=== PATIENT | male | born 1940 | race Caucasian/White ===

== ENCOUNTER 2016-10-15 18:48 | Inpatient (IN) | payer OTHER ==
[~2016-10-15] VITALS: Ht 188 cm; Wt 125.6 kg
[2016-10-15 18:48] VITALS: BP_SYST 226
[~2016-10-15 18:48] MED LIST: GLIP5TAB13 PO; HYDR4TAB26 PO; LISI-600 PO; LORA-259 PO; METO-442 PO; TEMA15CA51 PO; TIZA4TAB11 PO; TRAM50TA2 PO; VENL37.578 PO
--- NOTE | 2016-10-15 19:00 | NUR ---
Placed in room 1 . Placed on cardiac/vascular sonographer, blood pressure machine and pulse oximeter. To gown for exam. Side rails up. Report assumed care.
--- NOTE | 2016-10-15 19:02 | NUR ---
ER at bedside examining patient.
--- NOTE | 2016-10-15 19:10 | NUR ---
Patient arrived to ED a/o x 4 with c/o of substerbal chest pain radiating to the left side x 2 days. Patient reports he feel as if he was lying on one side for too long. Patient has history of high blood pressure. Patient was seen by PCP and was referred to ED due to abnormally high BP. Patient presents to ED with BP of 226/108. Patient reports new onset of N/V. Patient presents with diaphoresis. Complains of SOB but reports it hasnt worsened from baseline. Patient also reports 10/10 lower backpain. Will continue to monitor.
[2016-10-15] MEDS ORDERED: NITROGLYCERIN 0.4 MG TAB.SUBL SL ONE ×2 (19:13→19:15)
[2016-10-15] MEDS ORDERED: ASPIRIN 325 MG TABLET PO ONE (19:15)
[2016-10-15] MEDS ORDERED: NITROGLYCERIN 250 ML IV ONE (19:15)
[2016-10-15] MEDS ORDERED: MORPHINE 4 MG/ML INJ. SYRINGE IVP ONE (19:30)
[2016-10-15 19:42] LABS: BASOPHILS % (AUTO) 0.6 % (0.0-2.0); EOSINOPHILS # (AUTO) 0.3 K/uL (0.0-0.4); EOSINOPHILS % (AUTO) 5.9 % (0.0-4.0); HEMATOCRIT 48.9 % (36-54); LYMPHOCYTES # (AUTO) 1.5 K/uL (1.0-5.5); LYMPHOCYTES % (AUTO) 26.1 % (20.5-51.5); MEAN CORPUSCULAR HEMOGLOBIN 29 pg (27-31); MEAN CORPUSCULAR HGB CONC 33 % (32-36); MEAN CORPUSCULAR VOLUME 89 fL (79.0-98.0); MONOCYTES # (AUTO) 0.7 K/uL (0.0-1.0); MONOCYTES % (AUTO) 11.8 % (1.7-9.3); NEUTROPHILS # (AUTO) 3.2 K/uL (1.8-7.7); NEUTROPHILS % (AUTO) 55.6 % (40.0-70.0); PLATELET COUNT (AUTO) 154 K/uL (130-430); RED BLOOD CELL COUNT(AUTO) 5.51 MIL/uL (4.2-6.2); WHITE BLOOD COUNT (AUTO) 5.7 K/uL (4.8-10.8)
--- NOTE | 2016-10-15 19:45 | NUR ---
ED MD Corley at bedside examining patient.
--- NOTE | 2016-10-15 19:50 | NUR ---
20 gauge angiocath placed to the right forearm. Use of asceptic technique. Opsite placed over site. Blood return noted. Blood for lab drawn from site. Flushed with 10 cc of normal saline. No evidence of infiltration noted. Patient tolerated well.
[2016-10-15 19:52] LABS: ANION GAP 4 (5-15); CALCIUM 8.4 mg/dL (8.4-11.0); CHLORIDE 107 mmol/L (98-107); CREATININE 1.14 mg/dL (0.55-1.30); GLUCOSE 140 mg/dL (70-99); POTASSIUM 4.3 mmol/L (3.5-5.1); SODIUM SERUM 142 mmol/L (136-145); UREA NITROGEN, BLOOD 25 mg/dL (8-21)
--- NOTE | 2016-10-15 19:55 | NUR ---
Patient transported off unit via gurney by radiology staff.
[2016-10-15 19:57] LABS: ALANINE AMINOTRANSFERASE 30 U/L (12-78); ALBUMIN 3.4 g/dL (3.4-4.8); ASPARTATE AMINOTRANSFERASE 24 U/L (10-37); CREATINE KINASE, TOTAL 46 U/L (39-308); TOTAL BILIRUBIN 0.7 mg/dL (0.0-1.0); TOTAL PROTEIN, SERUM 7.5 g/dL (6.4-8.3)
--- NOTE | 2016-10-15 20:00 | NUR ---
Patient reports pain 6/10 15 minutes after administration of 4mg morphine. No adverse reactions noted. Will continue to monitor.
--- NOTE | 2016-10-15 20:05 | NUR ---
Patient returned to unit from CT via gurney by radiology staff.
--- NOTE | 2016-10-15 20:25 | NUR ---
ED MD Corley at bedside reassessing patient.
[2016-10-15] MEDS ORDERED: LISI40TA4 PO (20:42)
[2016-10-15] MEDS ORDERED: ONDA4TAB5 PO (20:42)
[2016-10-15] MEDS ORDERED: ESZO3TAB39 PO (20:43)
[2016-10-15] MEDS ORDERED: VENL75CA PO (20:44)
[2016-10-15] MEDS ORDERED: HYDR-1189 PO (20:45)
--- NOTE | 2016-10-15 20:51 | NUR ---
Medication reconciliation completed with information provided by patient. Any prior medication reconciliation on file was reviewed and corrected.
--- NOTE | 2016-10-15 21:00 | NUR ---
Patient will be admitted to care of Dr. Alicia. Admitted to Intensive Care unit. Will go to bed 1. Belongings list completed. Summary report printed. Report will be given at bedside. Transfer to ICU via ACLS protocol. Licensed nurse present. IV present no signs or symptoms of infiltration.
[2016-10-15] MEDS ORDERED: NACL 0.9% 1,000 ML IV SCH (21:10)
[2016-10-15] MEDS ORDERED: ACETAMINOPHEN 325 MG TABLET PO PRN (21:15)
[2016-10-15 21:24] VITALS: BP_SYST 195
[2016-10-15] MEDS ORDERED: POTASSIUM CHLORIDE 20 MEQ TAB.PRT.SR PO PRN (21:30)
[2016-10-15] MEDS ORDERED: IPRATROPIUM/ALBUTEROL SULFATE 3 ML AMPUL.NEB INH PRN (21:30)
[2016-10-15] MEDS ORDERED: MAGNESIUM SULFATE 50 ML IV PRN (21:30)
[2016-10-15 21:31] LABS: INR 1.1 (0.80-1.20); PROTHROMBIN TIME 11.7 SECS (9.5-12.5)
[2016-10-15] MEDS ORDERED: INSULIN REGULAR, HUMAN 100 UNITS/ML, 10 ML VIAL (novoLIN R) SUBCUT PRN (21:45)
--- NOTE | 2016-10-15 21:57 | NUR ---
CONSULT FOR KAYLAN CALLED @0871. SPOKE TO BEENA CONSULT FOR SUKHI CALLED @2017. SPOKE TO MAHESH
[2016-10-15 22:00] VITALS: BP_SYST 170; BP_SYST 187
--- NOTE | 2016-10-15 22:00 | NUR ---
PM SHIFT ASSESSMENT Received patient from ER via gurney. Patient admitted with diagnosis of hypertension and chest pain. Patient is awake, alert, oriented X4. Pt on room air, SP02 above 94%, RR even and unlabored. SR noted on monitor. IV to right AC, IVF infusing, no s/s of infiltration. Urinal at bedside for voiding. Skin intact. Patient oriented to hospital room, call light, toileting, pain management and safety-teach back done. Personal belongings checked and Belongings List documented. Call light within reach.
--- NOTE | 2016-10-15 22:00 | NUR ---
Note bladimir in ED - 10/16/16 at 0406 by [email or web address] Patient reports pain 6/10 15 minutes after administration of 4mg morphine. No adverse reactions noted. Will continue to monitor.
[2016-10-15 22:06] LABS: FREE T4 (FREE THYROXINE) 0.5 ng/dL (0.6-1.6); THYROID STIMULATING HORMONE 4.23 uIu/mL (0.34-4.82)
--- NOTE | 2016-10-15 22:25 | NUR ---
Anatoly garrison in ED - 10/16/16 at 0347 by [email or web address] KEVIN Corley at bedside reassessing patient.
[2016-10-15 23:00] VITALS: BP_SYST 154
[2016-10-16] VITALS (23 sets, daily range): BP systolic 123–203
[2016-10-16] MEDS: METOPROLOL TARTRATE 50 MG TABLET PO SCH ×3 (00:07→21:10)
[2016-10-16] MEDS: MORPHINE 2 MG/ML INJ. SYRINGE IVP PRN ×3 (00:08→09:59)
[2016-10-16] MEDS: LORazepam 2 MG/ML VIAL IVP PRN ×3 (00:10→21:34)
--- NOTE | 2016-10-16 00:50 | NUR ---
Dr. Alicia at bedside evaluating patient.
[2016-10-16] MEDS: ZOLPIDEM TARTRATE 5 MG TABLET PO PRN (01:12)
[2016-10-16 03:38] LABS: BASOPHILS # (AUTO) 0.1 K/uL (0.0-0.2); BASOPHILS % (AUTO) 0.9 % (0.0-2.0); EOSINOPHILS # (AUTO) 0.3 K/uL (0.0-0.4); EOSINOPHILS % (AUTO) 3.5 % (0.0-4.0); HEMATOCRIT 41.5 % (36-54); LYMPHOCYTES # (AUTO) 1.1 K/uL (1.0-5.5); LYMPHOCYTES % (AUTO) 14.7 % (20.5-51.5); MEAN CORPUSCULAR HEMOGLOBIN 30 pg (27-31); MEAN CORPUSCULAR HGB CONC 34 % (32-36); MEAN CORPUSCULAR VOLUME 89 fL (79.0-98.0); MONOCYTES # (AUTO) 0.7 K/uL (0.0-1.0); MONOCYTES % (AUTO) 9.5 % (1.7-9.3); NEUTROPHILS # (AUTO) 5.4 K/uL (1.8-7.7); NEUTROPHILS % (AUTO) 71.4 % (40.0-70.0); PLATELET COUNT (AUTO) 138 K/uL (130-430); RED BLOOD CELL COUNT(AUTO) 4.66 MIL/uL (4.2-6.2); RED CELL DISTRIBUTION WIDTH 14.7 % (9.0-15.0); WHITE BLOOD COUNT (AUTO) 7.6 K/uL (4.8-10.8)
[2016-10-16 03:55] LABS: ANION GAP 6 (5-15); CALCIUM 7.8 mg/dL (8.4-11.0); CHLORIDE 107 mmol/L (98-107); CREATININE 1.03 mg/dL (0.55-1.30); GLUCOSE 142 mg/dL (70-99); PHOSPHORUS 3.5 mg/dL (2.7-4.5); SODIUM SERUM 141 mmol/L (136-145)
--- NOTE | 2016-10-16 04:05 | NUR ---
CHG bath done. Pt tolerated care well. Will continue to monitor.
[2016-10-16 04:10] LABS: UREA NITROGEN, BLOOD 26 mg/dL (8-21)
[2016-10-16 04:12] LABS: BILIRUBIN,URINE NEGATIVE (NEGATIVE); CLARITY/URINE CLEAR (CLEAR); COLOR,URINE YELLOW (YELLOW); GLUCOSE,URINE NEGATIVE (NEGATIVE); KETONES,URINE NEGATIVE (NEGATIVE); LEUKOCYTE ESTERASE ,URINE NEGATIVE (NEGATIVE); NITRITE, URINE NEGATIVE (NEGATIVE); PROTEIN URINE NEGATIVE (NEGATIVE); UROBILINOGEN,URINE 0.2 (0.2-1.0)
[2016-10-16] MEDS: ONDANSETRON HCL 4 MG/2 ML VIAL IVP PRN ×2 (04:17→09:59)
[2016-10-16 04:27] LABS: BLOOD, URINE TRACE (NEGATIVE)
[2016-10-16 04:29] LABS: CHOLESTEROL 182 mg/dL (<200); HDL CHOLESTEROL 41 mg/dL (>45); LDL CHOLESTEROL 122 mg/dL (<100); TRIGLYCERIDES 112 mg/dL (30-150)
[2016-10-16 04:30] LABS: BACTERIA,URINE FEW /HPF (None Seen)
[2016-10-16 04:31] LABS: MUCUS,URINE None Seen /LPF (None Seen)
[2016-10-16 04:42] LABS: BARBITURATE, URINE NEGATIVE (NEG <=200); BENZODIAZEPINE, URINE POSITIVE (NEG <=150); CANNABINOID, URINE POSITIVE (NEG <=50); COCAINE, URINE NEGATIVE (NEG <=150); METHAMPHETAMINES SCREEN,URINE NEGATIVE (NEG <=500); OPIATE, URINE POSITIVE (NEG <=100); PHENCYCLIDINE SCREEN,URINE NEGATIVE (NEG <=25); UR TRICYCLIC ANTIDEPRESSANTS NEGATIVE (NEG <=300); URINE AMPHETAMINE NEGATIVE (NEG <=500); URINE METHADONE NEGATIVE (NEG <=200); URINE OXYCODONE SCREEN NEGATIVE (NEG <=100); URINE PROPOXYPHENE SCREEN NEGATIVE (NEG <=300)
--- NOTE | 2016-10-16 07:15 | NUR ---
Pt care endorsed to CORAZON Rodriguez at bedside using nursing SBAR.
--- NOTE | 2016-10-16 07:16 | NUR ---
AM Assessment Received Pt awake, alert, orientated x4. Pt breathing even and unlabored. Pt c/o headache / of an aching pain. Informed Pt pain medication is not due. Encouraged Pt to deep breath and decrease room light for comfort measures. Lung sounds auscultated, lung sounds clear throughout all lobes, Abd auscultated, bowel sounds noted throughout all quadrant. Abd soft and distended. Telemonitor noted SR with PVC. Pt currently on a nitroglycerin drip at 50mcg/min. HR 65, B/P 169/72, R 18, O2 @95% room air. IV access noted right AC 20G, patent with blood return. No s/s of inflammation or infiltration noted. Fall precaution in placed for safety measures. Assessment done, plan of care discussed with pt and Pt's , call light within easy reach, bed at lowest position, will continue to monitor.
--- NOTE | 2016-10-16 07:45 | NUR ---
BM Pt awake. Pt breathing even and unlabored. Pt c/o headache 10/10 of an aching pain. Informed Pt pain mediation is not due yet. Encouraged Pt to deep breath and provided ice pack for comfort measures. Nitroglycerin drip currently infusing at 50mcg/min, B/P 169/72, HR 65 SR with PVC, R 18, O2 96% room air. Pt requesting to use the toilet to make a BM. Pt refusing to use the bedpan. Informed Pt that Pt is at a high risk for falls because Pt is on a nitroglycerin drip and Pt should remain in bedrest to decrease the workload of the heart. Pt made aware of risk and benefits. Pt became verbally aggressive, tone of voice increased. Pt refuse to follow the plan of care. Bedside commode provided. Pt became SOB while ambulating to the bedside commode. Pt refuse O2 via NC. Pt had a large soft formed BM. Jyoti care provided. Informed Pt to push the call light if Pt needs assistance with anything. Pt verbalized understanding. Call light within easy reach, bed at lowest position, will continue to monitor.
[2016-10-16] MEDS: DOCUSATE SODIUM 100 MG CAPSULE PO SCH ×2 (09:00→21:10)
[2016-10-16] MEDS ORDERED: METOPROLOL TARTRATE 50 MG TABLET PO SCH (09:00)
[2016-10-16] MEDS: HEPARIN SODIUM,PORCINE 5000 UNITS/ML VIAL SUBCUT SCH ×2 (09:00→21:47)
[2016-10-16] MEDS: ASPIRIN 81 MG TAB.CHEW PO SCH (09:51)
[2016-10-16] MEDS: LISINOPRIL 20 MG TABLET PO SCH (09:53)
[2016-10-16] MEDS: Effexor 37.5 MG TAB PO SCH ×2 (09:55→21:10)
--- NOTE | 2016-10-16 10:00 | NUR ---
MD rounds Pt awake. Pt breathing even and unlabored. Pt c/o headache 01/03, pain medication administered as ordered. Nitroglycerin drip currently infusing at 50mcg/min. B/P 173/81, HR,72 20 O2 95% room air. Dr. Alicia at the bedside discussing plan of care. Informed Pt to push the call light if Pt needs assistance with anything. Pt verbalized understanding. Call light within easy reach, bed at lowest position, will continue to monitor.
[2016-10-16] MEDS ORDERED: amLODIPine BESYLATE 10 MG TABLET PO ONE (10:30)
[2016-10-16] MEDS ORDERED: FUROSEMIDE 40 MG/4 ML VIAL IVP ONE (11:00)
--- NOTE | 2016-10-16 11:15 | NUR ---
MD rounds Pt awake. Pt breathing even and unlabored. Pt c/o headache 01/03, pain medication was administered and ineffective. Decreased light and provided ice pack for comfort measures. Nitroglycerin drip currently infusing at 50mcg/min. B/P 174/97, HR 71, R 20 O2 97% @ 2L O2 via NC. Dr. Canchola at the bedside discussing plan of care. Informed Pt to push the call light if Pt needs assistance with anything. Pt verbalized understanding. Call light within easy reach, bed at lowest position, will continue to monitor.
[2016-10-16] MEDS: KETOROLAC TROMETHAMINE 30 MG VIAL IM PRN ×3 (11:31→18:40)
[2016-10-16] MEDS: IPRATROPIUM/ALBUTEROL SULFATE 3 ML AMPUL.NEB INH SCH ×2 (13:34→20:03)
--- NOTE | 2016-10-16 13:48 | NUR ---
PATIENT RESTING: Patient resting quietly. Chest rise and fall noted. No acute distress noted. Vital signs within normal range. Call light within easy reach, bed at lowest position, will continue to monitor.
--- NOTE | 2016-10-16 16:35 | NUR ---
Pt. awake. Pt. breathing even and unlabored. Pt. noted talking on the cellphone. Pt. denies pain, SOB or discomfort. chief cardiopulmonary technologist at the bedside performing cardiac echo. Informed Pt. to push the call light if pt. needs assistance, pt. verbalized understanding. Call light within easy reach. Bed at lowest position. Will continue to monitor.
--- NOTE | 2016-10-16 19:15 | NUR ---
ENDORSEMENT Received report from outgoing CORAZON Rodriguez.
--- NOTE | 2016-10-16 21:00 | NUR ---
NEW IV SITE NEW IV inserted at Left hand 22g. D/C old IV sites due clogged/not flushing.
[2016-10-16] MEDS: SIMVASTATIN 40 MG TABLET PO SCH (21:11)
--- NOTE | 2016-10-16 21:30 | NUR ---
Patient verbalized being anxious and would like something to make him sleep. Offered PRN ambien but patient refused due ineffective. PRN Ativan given as per order.
[2016-10-17] VITALS (10 sets, daily range): BP systolic 136–179
[2016-10-17] MEDS: MORPHINE 2 MG/ML INJ. SYRINGE IVP PRN ×6 (00:45→21:26)
--- NOTE | 2016-10-17 00:51 | NUR ---
PAIN Patient complaining of back and leg pain. Patient also verbalized that he still cannot sleep. PRN Morphine and PRN Ambien given as ordered
[2016-10-17] MEDS: IPRATROPIUM/ALBUTEROL SULFATE 3 ML AMPUL.NEB INH SCH ×4 (01:00→20:13)
--- NOTE | 2016-10-17 02:30 | NUR ---
Patient lying in bed with eyes closed. Rise and fall of chest noted. No sign of distress noted. Call light within reach. Bed in lowest position. Will continue to monitor patient.
[2016-10-17] MEDS: LORazepam 2 MG/ML VIAL IVP PRN (03:57)
[2016-10-17 07:07] LABS: BASOPHILS % (AUTO) 0.4 % (0.0-2.0); EOSINOPHILS # (AUTO) 0.2 K/uL (0.0-0.4); EOSINOPHILS % (AUTO) 2.8 % (0.0-4.0); HEMATOCRIT 44.8 % (36-54); HEMOGLOBIN 14.5 g/dL (14.0-18.0); LYMPHOCYTES # (AUTO) 1.4 K/uL (1.0-5.5); LYMPHOCYTES % (AUTO) 18.2 % (20.5-51.5); MEAN CORPUSCULAR HEMOGLOBIN 29 pg (27-31); MEAN CORPUSCULAR HGB CONC 32 % (32-36); MEAN CORPUSCULAR VOLUME 90 fL (79.0-98.0); MONOCYTES # (AUTO) 0.9 K/uL (0.0-1.0); MONOCYTES % (AUTO) 12.2 % (1.7-9.3); NEUTROPHILS # (AUTO) 5.3 K/uL (1.8-7.7); NEUTROPHILS % (AUTO) 66.4 % (40.0-70.0); PLATELET COUNT (AUTO) 139 K/uL (130-430); RED BLOOD CELL COUNT(AUTO) 4.98 MIL/uL (4.2-6.2); RED CELL DISTRIBUTION WIDTH 14.6 % (9.0-15.0); WHITE BLOOD COUNT (AUTO) 7.8 K/uL (4.8-10.8)
[2016-10-17 07:25] LABS: ANION GAP 5 (5-15); CALCIUM 8.4 mg/dL (8.4-11.0); CHLORIDE 105 mmol/L (98-107); CREATININE 1.07 mg/dL (0.55-1.30); GLUCOSE 114 mg/dL (70-99); PHOSPHORUS 3.1 mg/dL (2.7-4.5); POTASSIUM 3.7 mmol/L (3.5-5.1); SODIUM SERUM 141 mmol/L (136-145); UREA NITROGEN, BLOOD 20 mg/dL (8-21)
[2016-10-17] MEDS: amLODIPine BESYLATE 10 MG TABLET PO SCH (07:31)
--- NOTE | 2016-10-17 08:00 | NUR ---
ASSUMPTION OF CARE: RECEIVED PT A/A/OX4, DX:INADEQUATE PERFUSION, R/T HTN/CHRONIC PAIN, BP =194/89, PAIN LEVEL=7/10 VIA NUMERIC SCALE, BREATH SOUNDS ARE CLEAR, BREATHING UNLABORED, REFUSING O2 VIA NC, SATURATING 94 % ORA, IV SITE INTACT, PATENT, NO REDNESS OR SWELLING, ORIENTED TO UNIT, CALL LIGHT WITHIN REACH, INSTRUCTED TO UTILIZE BEFORE GETTING OOB, VERBALIZES UNDERSTANDING, WILL CONT' TO MONITOR AND ASSESS.
[2016-10-17] MEDS: DOCUSATE SODIUM 100 MG CAPSULE PO SCH ×2 (08:29→20:49)
[2016-10-17] MEDS: LISINOPRIL 20 MG TABLET PO SCH (08:30)
[2016-10-17] MEDS: METOPROLOL TARTRATE 50 MG TABLET PO SCH ×2 (08:31→20:48)
[2016-10-17] MEDS: ASPIRIN 81 MG TAB.CHEW PO SCH (08:31)
[2016-10-17] MEDS: HEPARIN SODIUM,PORCINE 5000 UNITS/ML VIAL SUBCUT SCH ×2 (08:36→20:55)
[2016-10-17] MEDS: Effexor 37.5 MG TAB PO SCH ×2 (08:37→20:47)
--- NOTE | 2016-10-17 09:00 | NUR ---
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
--- NOTE | 2016-10-17 09:50 | NUR ---
VISIT: AT BEDSIDE FOR ASSESSMENT OF PT, DISCUSSED PLAN OF CARE, NEW ORDERS GIVEN, WILL CONT' WITH PLAN OF CARE.
[2016-10-17] MEDS ORDERED: oxyCODONE HCL 10 MG TAB.ER.12H PO SCH (10:00)
--- NOTE | 2016-10-17 10:00 | NUR ---
P.T. NOTES PATIENT'S CHART REVIEWED, GOT CLEARANCE FROM NURSE FOR P.T. AND PATIENT WAS SEEN IN BED WITH A FAMILY MEMBER AT HIS SIDE VISITING. BOTH REFUSED TO PARTICIPATE WITH THE P.T. EVAL IN SPITE OF SEVERAL ENCOURAGEMENTS GIVEN AND THE BENEFIT OF MOBILITY ACTIVITIES BUT BOTH KEEP REFUSING "UNTIL THEY FIGURE OUT MY PAIN MEDICATION FIRST!" PER PATIENT TO TRY AGAIN TOMORROW BUT NOT TODAY. HIS NURSE WAS MADE AWARE OF HIS REFUSAL. PLAN: WE'LL ATTEMPT THE EVAL AGAIN TOMORROW. (PVEX2)
--- NOTE | 2016-10-17 10:40 | NUR ---
transfer rec patient transfer from icu, awake alert oriented with ivl intact. no infiltration oted. oriented with pt's surrounding. provided with urianl with a martin. bed in low position and side rails up and locked. bed alrm was activated at bedside.call light within reached and knows when to call for help.
[2016-10-17] MEDS ORDERED: ISOSORBIDE DINITRATE 20 MG TABLET (ISORDIL) PO ONE (11:15)
--- NOTE | 2016-10-17 12:00 | NUR ---
rounds no hypo /hyperglycemic reaction noted.pt with a good appetite. no acute distress noted.
[2016-10-17] MEDS ORDERED: MORPHINE SULFATE 15 MG TABLET.SA PO ONE (12:45)
--- NOTE | 2016-10-17 14:00 | NUR ---
rounds was taking a nap and no acute distress noted. call light within reached.
--- NOTE | 2016-10-17 16:00 | NUR ---
rounds rounds made and watching tv. turned repositioned self while in bed. call light within reached.
--- NOTE | 2016-10-17 18:40 | NUR ---
closing notes sleeps at intervals but otherwise arousable to stimuli. hl was removed on the l hand and endoresed to cuba coleman to restart a new one. bed in low position and side rails up and locked.
--- NOTE | 2016-10-17 19:30 | NUR ---
NOTES RECEIVED THE PT FROM THE DAY NURSE,PT A/A/OX4 C/O BACK PAIN ,RN STATES HIS IV IS INFILTRATED AND WAS DC;D.MONITOR IN PLACE AND SHOWS SR PT REFUSING O2 VIA NC.STATES "I DONT NEED IT"CALL LIGHT WITHIN REACH,SAFETY MEASURES IN PROGRESS.CONTINUE TO MONITOR..
--- NOTE | 2016-10-17 20:36 | NUR ---
NOTES NEW IV STARTED INTO RT WRIST WITH #22 ANGIO WITH ANTISEPTIC TECHNIQUE
[2016-10-17] MEDS: ISOSORBIDE DINITRATE 20 MG TABLET (ISORDIL) PO SCH (20:48)
[2016-10-17] MEDS: MORPHINE SULFATE 15 MG TABLET.SA PO SCH (20:49)
[2016-10-17] MEDS: ZOLPIDEM TARTRATE 5 MG TABLET PO PRN (20:49)
[2016-10-17] MEDS: SIMVASTATIN 40 MG TABLET PO SCH (20:49)
--- NOTE | 2016-10-17 21:30 | NUR ---
NOTES PT WAS MEDICATED BY THE RN FOR A C/O BACK PAIN.CONTINUE TO MONITOR.
--- NOTE | 2016-10-17 23:23 | NUR ---
NOTES PT SLEEPING,CALL LIGHT WITHIN REACH.CONTINUE TO MONITOR.
[2016-10-17 23:51] LABS: HEMOGLOBIN A1C 5.4 % (4.8-5.6)
[2016-10-18] MEDS: IPRATROPIUM/ALBUTEROL SULFATE 3 ML AMPUL.NEB INH SCH ×2 (00:16→07:00)
[2016-10-18 00:36] VITALS: BP_SYST 138
--- NOTE | 2016-10-18 01:31 | NUR ---
NOTES PT SLEEPING,CALL LIGHT WITHIN REACH.CONTINUE TO MONITOR.
[2016-10-18 02:08] LABS: T4 (THYROXINE) 6.5 ug/dL (4.5-12.0)
--- NOTE | 2016-10-18 03:35 | NUR ---
NOTES PT SLEEPING,NO DISTRESS NOTED.
[2016-10-18 04:12] VITALS: BP_SYST 126
--- NOTE | 2016-10-18 05:20 | NUR ---
NOTES PT SLEEPING,NO DISTRESS NOTED.
--- NOTE | 2016-10-18 05:50 | NUR ---
NOTES BLOOD DRAWN BY THE LAB
--- NOTE | 2016-10-18 06:16 | NUR ---
CLOSING NOTES ACCUCHECK WAS 77.NO INSULIN NEEDED.WILL ENDORSE THE CARE OF THE PT TO THE DAY NURSE.
[2016-10-18 07:31] LABS: BASOPHILS % (AUTO) 0.3 % (0.0-2.0); EOSINOPHILS # (AUTO) 0.4 K/uL (0.0-0.4); EOSINOPHILS % (AUTO) 5.1 % (0.0-4.0); HEMATOCRIT 46.5 % (36-54); HEMOGLOBIN 15.1 g/dL (14.0-18.0); LYMPHOCYTES % (AUTO) 23.6 % (20.5-51.5); MEAN CORPUSCULAR HEMOGLOBIN 29 pg (27-31); MEAN CORPUSCULAR HGB CONC 32 % (32-36); MEAN CORPUSCULAR VOLUME 91 fL (79.0-98.0); MONOCYTES # (AUTO) 0.9 K/uL (0.0-1.0); MONOCYTES % (AUTO) 10.5 % (1.7-9.3); NEUTROPHILS % (AUTO) 60.5 % (40.0-70.0); PLATELET COUNT (AUTO) 158 K/uL (130-430); RED BLOOD CELL COUNT(AUTO) 5.14 MIL/uL (4.2-6.2); RED CELL DISTRIBUTION WIDTH 15.2 % (9.0-15.0); WHITE BLOOD COUNT (AUTO) 8.3 K/uL (4.8-10.8)
[2016-10-18 07:46] LABS: ANION GAP 6 (5-15); CALCIUM 8.5 mg/dL (8.4-11.0); CHLORIDE 105 mmol/L (98-107); CREATININE 1.05 mg/dL (0.55-1.30); GLUCOSE 99 mg/dL (70-99); PHOSPHORUS 3.4 mg/dL (2.7-4.5); POTASSIUM 3.7 mmol/L (3.5-5.1); SODIUM SERUM 140 mmol/L (136-145); UREA NITROGEN, BLOOD 23 mg/dL (8-21)
--- NOTE | 2016-10-18 08:00 | NUR ---
initial notes rec patient awake alert with hob elevated. ivl on the l hand intact. no infiltration noted. denies pain at this time. bed in low position and side rails up and locked.call light within reached and knows when to call for assistance.
[2016-10-18] MEDS: HEPARIN SODIUM,PORCINE 5000 UNITS/ML VIAL SUBCUT SCH (09:00)
[2016-10-18] MEDS: DOCUSATE SODIUM 100 MG CAPSULE PO SCH (09:00)
[2016-10-18] MEDS ORDERED: VENL37.510 PO (09:01)
[2016-10-18] MEDS ORDERED: MORP15TA60 PO (09:01)
[2016-10-18] MEDS ORDERED: NOR10 PO (09:01)
[2016-10-18] MEDS ORDERED: ISOS20TA8 PO (09:01)
[2016-10-18] MEDS: amLODIPine BESYLATE 10 MG TABLET PO SCH (09:15)
[2016-10-18] MEDS: ASPIRIN 81 MG TAB.CHEW PO SCH (09:15)
[2016-10-18] MEDS: ISOSORBIDE DINITRATE 20 MG TABLET (ISORDIL) PO SCH (09:15)
[2016-10-18] MEDS: LISINOPRIL 20 MG TABLET PO SCH (09:16)
[2016-10-18] MEDS: Effexor 37.5 MG TAB PO SCH (09:16)
[2016-10-18] MEDS: MORPHINE SULFATE 15 MG TABLET.SA PO SCH (09:17)
[2016-10-18] MEDS: METOPROLOL TARTRATE 50 MG TABLET PO SCH (09:17)
--- NOTE | 2016-10-18 09:40 | NUR ---
rounds be was rechecked and was 160/70. stated will saúl to go see pmd today.
--- NOTE | 2016-10-18 09:40 | NUR ---
rounds pt wanted to sign ama but explained to wait for dr thakkar and came. at bedside with patient.
--- NOTE | 2016-10-18 10:00 | NUR ---
closing notes seen by dr thakkar and went home after. narcotic prescription was given by him and others as e prescription. patient was instructed re med reconciliation , new and to stop meds. ivl was removed and id band and put in the shredder. was wheeled outside. stable and needs attended.
--- NOTE | 2016-10-18 12:20 | NUR ---
P.T. NOTES Pt WAS SEEN AWAKE & ALERT IN BED, DECLINED W/ P.T., STATES HE IS GOING HOME, EXPLAINED BENEFITS OF THERAPY; IN ROOM, STATES HE HAS BEEN WALKING & HIS BACK FEELS BETTER, APPRECIATIVE; CALL LIGHT, PHONE, TABLE IN REACH; FOLLOW UP TOMORROW IF Pt NOT D/C'd. NANETTEE
--- NOTE | 2016-10-20 15:53 | NUR ---
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 Patient returned the call. He stated he went to the pharmacy the evening of discharge and there was no prescription there. He worked with the pharmacy and PCP and now has his medications. Reviewed with patient. Patient saw his PCP the evening of discharge. Patient had a complaint about a nurse and that was passed on to PI along with the medication issue. UNEMPLOYMENT INSURANCE HEARING OFFICER will remain available upon request.
== END 2016-10-18 09:55 | disposition home or self-care (01) | DRG 392 ==
LOC: SED 18:48 → SIC 20:52 → STU 10-17 10:40
PROVIDERS: ADMIT Family Medicine; ATTEND Family Medicine
DX: K21.9 Gastro-esophageal reflux disease without esophagitis (principal); I16.1 Hypertensive emergency; J81.1 Chronic pulmonary edema; E11.9 Type 2 diabetes mellitus without complications; F12.90 Cannabis use, unspecified, uncomplicated; E66.9 Obesity, unspecified; F41.9 Anxiety disorder, unspecified; G44.009 Cluster headache syndrome, unspecified, not intractable; M19.90 Unspecified osteoarthritis, unspecified site; F32.9 Major depressive disorder, single episode, unspecified; G89.4 Chronic pain syndrome; M51.16 Intervertebral disc disorders with radiculopathy, lumbar region; I50.9 Heart failure, unspecified; I11.0 Hypertensive heart disease with heart failure; Z51.5 Encounter for palliative care; Z66 Do not resuscitate; Z68.35 Body mass index [BMI] 35.0-35.9, adult; Z88.6 Allergy status to analgesic agent; Z79.899 Other long term (current) drug therapy; Z91.040 Latex allergy status
CPT/HCPCS: 36415; 70450-TC; 71010; 80048; 80053; 80061; 80307; 81000-TC; 82150-TC; 82550-TC; 82962; 83036; 83605; 83690-TC; 83735-TC; 83880; 84100-TC; 84436; 84439; 84443-TC; 84479; 84484; 85025; 85610-TC; 85730-TC; 87040-TC; 87081; 93005; 93306; 94640; 96374; 99285; J1644; J1815; J1885; J1940; J2060; J2270; J2405; J3490; J7030

== ENCOUNTER 2017-11-20 07:43 | Emergency (ER) | payer OTHER ==
[~2017-11-20] VITALS: Ht 188 cm; Wt 108.9 kg
[~2017-11-20 07:43] MED LIST changes: +ESZO3TAB39 PO; -HYDR4TAB26 PO; +ISOS20TA8 PO; -LISI-600 PO; +LISI40TA4 PO; +MORP15TA60 PO; +NOR10 PO; +ONDA4TAB5 PO; -TEMA15CA51 PO; -TIZA4TAB11 PO; -TRAM50TA2 PO; +VENL37.510 PO; -VENL37.578 PO
[2017-11-20 07:50] VITALS: BP_SYST 121
[2017-11-20 09:03] LABS: EOSINOPHILS # (AUTO) 0.1 K/uL (0.0-0.4); EOSINOPHILS % (AUTO) 1.7 % (0.0-4.0); HEMATOCRIT 49.5 % (36-54); HEMOGLOBIN 17.2 g/dL (14.0-18.0); LYMPHOCYTES % (AUTO) 12.8 % (20.5-51.5); MEAN CORPUSCULAR HEMOGLOBIN 31 pg (27-31); MEAN CORPUSCULAR HGB CONC 35 % (32-36); MEAN CORPUSCULAR VOLUME 90 fL (79.0-98.0); MONOCYTES # (AUTO) 0.8 K/uL (0.0-1.0); MONOCYTES % (AUTO) 9.6 % (1.7-9.3); PLATELET COUNT (AUTO) 206 K/uL (130-430); RED BLOOD CELL COUNT(AUTO) 5.51 MIL/uL (4.2-6.2); RED CELL DISTRIBUTION WIDTH 13.4 % (9.0-15.0); WHITE BLOOD COUNT (AUTO) 8.2 K/uL (4.8-10.8)
[2017-11-20 09:07] LABS: BASOPHILS % (AUTO) 0.3 % (0.0-2.0); NEUTROPHILS # (AUTO) 6.3 K/uL (1.8-7.7); NEUTROPHILS % (AUTO) 75.6 % (40.0-70.0)
[2017-11-20] MEDS ORDERED: NACL 0.9% 1,000 ML IV ONE (09:10)
[2017-11-20] MEDS ORDERED: ONDANSETRON HCL 4 MG/2 ML VIAL IVP ONE (09:15)
[2017-11-20] MEDS ORDERED: KETOROLAC TROMETHAMINE 30 MG VIAL IVP ONE (09:15)
[2017-11-20 09:27] LABS: ANION GAP 9 (5-15); CALCIUM 9.3 mg/dL (8.4-11.0); CHLORIDE 104 mmol/L (98-107); CREATININE 1.21 mg/dL (0.55-1.30); GLUCOSE 161 mg/dL (70-99); POTASSIUM 3.8 mmol/L (3.5-5.1); SODIUM SERUM 136 mmol/L (136-145); UREA NITROGEN, BLOOD 14 mg/dL (8-21)
[2017-11-20 09:32] LABS: ALANINE AMINOTRANSFERASE 24 U/L (12-78); ALBUMIN 3.8 g/dL (3.4-4.8); ASPARTATE AMINOTRANSFERASE 22 U/L (10-37); LIPASE 95 U/L (73-393); TOTAL BILIRUBIN 1.4 mg/dL (0.0-1.0)
[2017-11-20] MEDS ORDERED: METOCLOPRAMIDE HCL 10 MG/2 ML VIAL IVP ONE (12:45)
[2017-11-20 13:35] VITALS: BP_SYST 140
== END 2017-11-20 13:35 | disposition home or self-care (01) ==
LOC: SED 07:43
DX: R10.11 Right upper quadrant pain (principal); R11.10 Vomiting, unspecified; E11.9 Type 2 diabetes mellitus without complications; I10 Essential (primary) hypertension; Z88.5 Allergy status to narcotic agent; Z91.040 Latex allergy status
CPT/HCPCS: 36415; 76700; 80053; 83690; 85025; 96361; 96374; 96375; 99285; J1885; J2405; J2765; J7030

== ENCOUNTER 2019-01-20 20:18 | Inpatient (IN) | payer OTHER ==
[~2019-01-20] VITALS: Ht 188 cm; Wt 131.5 kg
[~2019-01-20 20:18] MED LIST changes: -ESZO3TAB39 PO; -LORA-259 PO; -MORP15TA60 PO; -ONDA4TAB5 PO; -VENL37.510 PO
--- NOTE | 2019-01-20 20:24 | NUR ---
Patient to ER bed 1 to gown for evaluation. Side rails up.
[2019-01-20 20:25] VITALS: BP_SYST 193
--- NOTE | 2019-01-20 20:25 | NUR ---
Patient was BIB BLS for abdominal pain. Pt states he started to feel pain after eating. Per pt, abdomen "feels rock hard." Pt denies vomiting but feels nauseous. Per patient, he's had this feeling before and was seen at a different hospital and was discharged with gallstones. Pt denies diarrhea/constipation. No other injuries/complaints per patient or noted.
[2019-01-20] MEDS ORDERED: NS 500 ML IV ONE ×2 (20:30→22:15)
[2019-01-20] MEDS ORDERED: ONDANSETRON HCL 4 MG/2 ML VIAL IVP ONE (20:45)
[2019-01-20] MEDS ORDERED: KETOROLAC TROMETHAMINE 30 MG VIAL IVP ONE (20:45)
[2019-01-20 20:53] LABS: BASOPHILS # (AUTO) 0.1 K/uL (0.0-0.2); BASOPHILS % (AUTO) 0.9 % (0.0-2.0); EOSINOPHILS # (AUTO) 0.2 K/uL (0.0-0.4); EOSINOPHILS % (AUTO) 2.7 % (0.0-4.0); HEMATOCRIT 50.2 % (36-54); HEMOGLOBIN 17.1 g/dL (14.0-18.0); LYMPHOCYTES # (AUTO) 1.8 K/uL (1.0-5.5); LYMPHOCYTES % (AUTO) 27.5 % (20.5-51.5); MEAN CORPUSCULAR HEMOGLOBIN 31 pg (27-31); MEAN CORPUSCULAR HGB CONC 34 % (32-36); MEAN CORPUSCULAR VOLUME 91 fL (79.0-98.0); MONOCYTES # (AUTO) 0.7 K/uL (0.0-1.0); MONOCYTES % (AUTO) 9.8 % (1.7-9.3); NEUTROPHILS % (AUTO) 59.1 % (40.0-70.0); PLATELET COUNT (AUTO) 163 K/uL (130-430); RED BLOOD CELL COUNT(AUTO) 5.55 MIL/uL (4.2-6.2); RED CELL DISTRIBUTION WIDTH 14.3 % (9.0-15.0); WHITE BLOOD COUNT (AUTO) 6.7 K/uL (4.8-10.8)
--- NOTE | 2019-01-20 20:55 | NUR ---
Anatoly garrison in EDM - 01/20/19 at 2055 by [email or web address] md brennon Corley at bedside examining patient.
--- NOTE | 2019-01-20 20:55 | NUR ---
ER Dr. Corley at bedside examining patient.
--- NOTE | 2019-01-20 21:06 | NUR ---
Portable xray at bedside. Pt tolerated well.
[2019-01-20 21:14] LABS: INR 1.1 (0.80-1.20); PROTHROMBIN TIME 10.8 SECS (9.5-12.5)
[2019-01-20 21:18] LABS: ANION GAP 9 (5-15); CHLORIDE 103 mmol/L (98-107); CREATININE 1.23 mg/dL (0.55-1.30); GLUCOSE 185 mg/dL (70-99); POTASSIUM 3.8 mmol/L (3.5-5.1); SODIUM SERUM 137 mmol/L (136-145); UREA NITROGEN, BLOOD 21 mg/dL (8-21)
[2019-01-20 21:24] LABS: ALANINE AMINOTRANSFERASE 31 U/L (12-78); ALBUMIN 3.6 g/dL (3.4-4.8); ASPARTATE AMINOTRANSFERASE 22 U/L (10-37); LIPASE 144 U/L (73-393); TOTAL BILIRUBIN 0.9 mg/dL (0.0-1.0)
[2019-01-20] MEDS ORDERED: metroNIDAZOLE 500 mg/NS 100 ML IV ONE (22:15)
[2019-01-20] MEDS ORDERED: NACL 0.9% 2,000 ML IV ONE (22:15)
[2019-01-20 23:15] LABS: BILIRUBIN,URINE NEGATIVE (NEGATIVE); CLARITY/URINE SL HAZY (CLEAR); COLOR,URINE YELLOW (YELLOW); GLUCOSE,URINE NEGATIVE (NEGATIVE); KETONES,URINE NEGATIVE (NEGATIVE); LEUKOCYTE ESTERASE ,URINE 1+ (NEGATIVE); NITRITE, URINE NEGATIVE (NEGATIVE); PROTEIN URINE NEGATIVE (NEGATIVE); UROBILINOGEN,URINE 0.2 (0.2-1.0)
[2019-01-20 23:17] LABS: BLOOD, URINE TRACE (NEGATIVE)
[2019-01-20 23:30] LABS: BACTERIA,URINE MANY /HPF (None Seen)
--- NOTE | 2019-01-20 23:37 | NUR ---
Medication reconciliation completed with information provided by patient. Any prior medication reconciliation on file was reviewed and corrected.
--- NOTE | 2019-01-20 23:59 | NUR ---
Patient will be admitted to care of MD Tovar. Admitted to Med/Surg unit. Will go to room 103A. Belongings list completed. Summary report printed. Report will be given at bedside.
[2019-01-21] MEDS ORDERED: hydrALAZINE HCL 20 MG/ML VIAL IVP ONE
--- NOTE | 2019-01-21 00:33 | NUR ---
Transfer to [facility]. IV present no sign or symptom of infiltration.
[2019-01-21] MEDS ORDERED: D5W 1,000 ML IV PRN (00:39)
--- NOTE | 2019-01-21 00:41 | NUR ---
ADMIT NOTE Received pt from ER to the floor with a diagnosis of gallstone. Admission process initiated. patient oriented to pain management, safety and call light-teach back done.
[2019-01-21 00:43] VITALS: BP_SYST 178
[2019-01-21] MEDS ORDERED: DEXTROSE 50% JECT 50 ML DISP.SYRIN IVP PRN (00:45)
[2019-01-21] MEDS ORDERED: ONDANSETRON HCL 4 MG/2 ML VIAL IVP PRN (00:45)
[2019-01-21] MEDS ORDERED: LORazepam 2 MG/ML VIAL IVP PRN (00:45)
[2019-01-21] MEDS ORDERED: GLUCOSE 15 GM GEL (in 37.5 GM TUBE) PO PRN (00:45)
[2019-01-21] MEDS ORDERED: INSULIN REGULAR, HUMAN 100 UNITS/ML, 10 ML VIAL (humuLIN R) SUBCUT PRN (00:45)
[2019-01-21] MEDS ORDERED: KETOROLAC TROMETHAMINE 30 MG VIAL IVP PRN (00:45)
--- NOTE | 2019-01-21 00:45 | NUR ---
admitted to the unit.pt.presents admit dx;abdomen pain.pt.had stated he presents pain:location abdomen.pt.presents diabetic hx. i have assessed the blood glucose;value;127mg/dl.pt.presents iv access;lock.pt.diet status;npo.call light/telephone placed w/in the reach of the pt. i have demonstrated the room telephone function.
[2019-01-21 00:59] VITALS: BP_SYST 163
--- NOTE | 2019-01-21 01:28 | NUR ---
Consultation Paged Reason for Consultation: Gallstones Was consult called: Y Person who was notified: Jody Consulting Physician: Adolfo Randle Adolescent Coordinator Ordering Physician: Dr. Lemons
--- NOTE | 2019-01-21 01:30 | NUR ---
i have provided the pt's w/a walker.pt has ambulaetd to the restroom.gait unsteady.pt.'s gait assessed return to bed. pt.presents profound sob episodes upon return to bed.to f/u.i have provide toiletries.
--- NOTE | 2019-01-21 02:00 | NUR ---
pt.assessed i have initiated the administration iv fluids.i have assisted the pt's.to the restroom;pt.utilizing the walker; gait unsteady. i have assisted pt's return to bed.
[2019-01-21] MEDS: D5/0.45 NS 1,000 ML IV SCH ×2 (02:09→18:05)
--- NOTE | 2019-01-21 03:00 | NUR ---
pt.assessed pt.had requested medication:anxiety,pain.i have administered ativan:1mg ivp.;paged re;pain medication. pharmacy had apprised me of toradol;30mg is eccessve mg;dose for the pt;re;pt's [id number].the pharmacist conveyed that the toradol dose:should be 15mg.
[2019-01-21] MEDS ORDERED: cloNIDine HCL 0.1 MG TABLET PO PRN (03:45)
--- NOTE | 2019-01-21 04:00 | NUR ---
pt.assessed.pt.presents quiescent affect;resting. had yet to return the page.i have conveyed to the pt.that has been paged again.iv fluid infusing respiratory pattern/character quiescent;calm.@room air.pt.capable to reposition self.call light/ telephone placed w/in the reach of the pt.02-sat%=96%.
[2019-01-21] MEDS: DIAZEPAM 5 MG TABLET (VALIUM) PO PRN ×2 (04:28→20:32)
[2019-01-21] MEDS: KETOROLAC TROMETHAMINE 15 MG VIAL IVP PRN ×3 (04:30→20:31)
--- NOTE | 2019-01-21 05:00 | NUR ---
returned page.i apprised that pharmacy noted the toradol dose is excess for the pt 2/t to the pt's age;89yrs. order;toradol;15mg ivp q-6hrs/P;pain,i conveyed to that the pt.presented elevated b/p;no b/p mediactions were ordered prn;all b/p medication scheduled@0900a. ordered clonidine;0.1mg po.i apprised juan the pthad requeste valium 5mg po anxiety. aquiesct and=ordr valium per pt's reques.i have conveyd to main of the pt's respiratory status post ambulation. ordered o2 therapy:nasal cannulae/mask prn;as needed.i have adminstered. toradol;15mg ivp,catapres;0.1mg po,valium:5mg po and i have applied o2 therapy@2l/m via nasal cannulae.
--- NOTE | 2019-01-21 06:30 | NUR ---
pt.assessed.pt stated he felt much better re;pain mgx,anxiety.i have assessed the blood glucose:value;122mg/dl.i have attended to the urinal;measured/cleaned.iv access intact;patent:iv fluids infusing.general status stable.respiratory status stable@2l/min via nasal cannulae:02-sat%=96%.urinal placed w/in reach of the pt.call light/telephone placed w/in reach of the pt.
--- NOTE | 2019-01-21 07:30 | NUR ---
INITIAL NOTE BEDSIDE SBAR REPORT RECEIVED BY NIGHTS SHIFT RN. PT AWAKE, DENIES ANY N/V OR DISCOMFORT. PT ON 2L NC, TOLERATING WELL. IVF INFUSING WELL. CALL LIGHT WITHIN REACH, BED IN LOW AND LOCKED POSITION WITH BED ALARM ON.
[2019-01-21 08:00] VITALS: BP_SYST 158
[2019-01-21] MEDS: amLODIPine BESYLATE 10 MG TABLET PO SCH (08:42)
[2019-01-21] MEDS: METOPROLOL TARTRATE 50 MG TABLET PO SCH ×2 (08:42→21:35)
[2019-01-21] MEDS: ISOSORBIDE DINITRATE 20 MG TABLET (ISORDIL) PO SCH ×2 (08:42→21:35)
[2019-01-21] MEDS: LISINOPRIL 20 MG TABLET PO SCH (08:43)
--- NOTE | 2019-01-21 09:30 | NUR ---
RN ROUNDS PT RESTING AT BEDSIDE. NO ACUTE DISTRESS NOTED, BREATHING EVEN AND UNLABORED.
--- NOTE | 2019-01-21 11:30 | NUR ---
RN ROUND PT ASLEEP, NO ACUTE DISTRESS NOTED, BREATHING EVEN AND UNLABORED.
--- NOTE | 2019-01-21 13:30 | NUR ---
RN ROUNDS ASSISTED PT TO RESTROOM, STEADY GAIT, TOLERATED WELL. DENIES ANY SOB.
--- NOTE | 2019-01-21 15:45 | NUR ---
SCAN SCAN BEING DONE AT BEDSIDE. TOLERATING WELL.
--- NOTE | 2019-01-21 17:45 | NUR ---
RN ROUNDS PT RESTING IN BED, NO ACUTE DISTRESS NOTED, BREATHING EVEN AND UNLABORED.
--- NOTE | 2019-01-21 19:48 | NUR ---
CLOSING NOTE BEDSIDE SBAR REPORT GIVEN TO TECHNICIAN TELECOMMUNICATION SYSTEMS RN. PT RESTING, NO ACUTE DISTRESS NOTED, BREATHING EVEN AND UNLABORED. CALL LIGHT WITHIN REACH, BED IN LOW AND LOCKED POSITION WITH BED ALARM ON. PT CARE ENDORSED TO TECHNICIAN TELECOMMUNICATION SYSTEMS RN.
--- NOTE | 2019-01-21 20:06 | NUR ---
PAGED I PAGED DR. DARNELL Orr @ 2005 I SPOKE WITH TONIE RUIZ
--- NOTE | 2019-01-21 20:20 | NUR ---
PAGED I PAGED DR. DARNELL Orr @ 2019 I SPOKE WITH TONIE Orr CALLED BACK @ 2022
--- NOTE | 2019-01-21 22:53 | NUR ---
CONSULTATION PAGED/CALLED Reason for Consultation: CHOLELTHIASIS Person Who was Notified: DR. MILLIGAN Consulting Physician: DR. MILLIGAN Oxygen Therapist Specialty: Ordering Physician: MANI
[2019-01-22] MEDS: D5/0.45 NS 1,000 ML IV SCH (02:35)
--- NOTE | 2019-01-22 02:49 | NUR ---
Assumed care from Registry nurse Diaz.
[2019-01-22] MEDS: DIAZEPAM 5 MG TABLET (VALIUM) PO PRN (04:20)
[2019-01-22] MEDS: KETOROLAC TROMETHAMINE 15 MG VIAL IVP PRN (04:23)
[2019-01-22 04:55] VITALS: BP_SYST 153
--- NOTE | 2019-01-22 05:00 | NUR ---
Rounds Pt awake, no s/s distress note. VSS, afebrile. Pt refused IVfluids at this time. Pt informed of risks and benefits. Call light within reach. Bed low, locked, siderails up. To endorse to AM nurse.
--- NOTE | 2019-01-22 06:39 | NUR ---
Closing notes Pt AAOx4, watching TV, no s/s distress noted. Blood sugar checked 94. No insulin indicated per ss protocol. Pt refused IV fluids at this time. Educated pt on risks/benefits. IV saline lock R. FA 20G flushes well with NS. Call light/items within easy reach. Bed low, locked, siderails up, bed alarm on. To endorse to AM nurse.
[2019-01-22 07:01] LABS: ANION GAP 8 (5-15); CALCIUM 8.4 mg/dL (8.4-11.0); CHLORIDE 106 mmol/L (98-107); CREATININE 1.05 mg/dL (0.55-1.30); GLUCOSE 105 mg/dL (70-99); POTASSIUM 3.6 mmol/L (3.5-5.1); SODIUM SERUM 140 mmol/L (136-145); UREA NITROGEN, BLOOD 13 mg/dL (8-21)
[2019-01-22 07:06] LABS: BASOPHILS % (AUTO) 0.5 % (0.0-2.0); EOSINOPHILS # (AUTO) 0.2 K/uL (0.0-0.4); EOSINOPHILS % (AUTO) 4.1 % (0.0-4.0); HEMATOCRIT 42.6 % (36-54); HEMOGLOBIN 14.7 g/dL (14.0-18.0); LYMPHOCYTES % (AUTO) 20.9 % (20.5-51.5); MEAN CORPUSCULAR HEMOGLOBIN 31 pg (27-31); MEAN CORPUSCULAR HGB CONC 35 % (32-36); MEAN CORPUSCULAR VOLUME 90 fL (79.0-98.0); MONOCYTES # (AUTO) 0.5 K/uL (0.0-1.0); MONOCYTES % (AUTO) 9.8 % (1.7-9.3); NEUTROPHILS # (AUTO) 3.1 K/uL (1.8-7.7); NEUTROPHILS % (AUTO) 64.7 % (40.0-70.0); PLATELET COUNT (AUTO) 138 K/uL (130-430); RED BLOOD CELL COUNT(AUTO) 4.75 MIL/uL (4.2-6.2); RED CELL DISTRIBUTION WIDTH 14.1 % (9.0-15.0); WHITE BLOOD COUNT (AUTO) 4.8 K/uL (4.8-10.8)
[2019-01-22 07:31] VITALS: BP_SYST 161
[2019-01-22] MEDS: ISOSORBIDE DINITRATE 20 MG TABLET (ISORDIL) PO SCH (07:57)
[2019-01-22] MEDS: amLODIPine BESYLATE 10 MG TABLET PO SCH (07:58)
[2019-01-22] MEDS: LISINOPRIL 20 MG TABLET PO SCH (07:59)
[2019-01-22] MEDS: METOPROLOL TARTRATE 50 MG TABLET PO SCH (08:00)
--- NOTE | 2019-01-22 08:00 | NUR ---
ASSUMPTION OF CARE: RECEIVED PT A/A/OX4, DX: ACUTE PAIN, R/T GALLSTONES. NO C/O PAIN OR DISCOMFORT AT THIS TIME, IV SITE INTACT, PATENT, NO REDNESS OR SWELLING, BREATH SOUNDS ARE CLEAR, BREATHING UNLABORED, ORIENTED TO UNIT, CALL LIGHT PLACED WITHIN REACH, WILL CONT' TO MONITOR AND ASSESS.
--- NOTE | 2019-01-22 09:00 | NUR ---
LIVESTOCK FARMER: MORNING MEDS GIVEN, PER ORDERED BY Jose, TOLERATED WELL, WILL CONT' TO MONITOR AND ASSESS.
[2019-01-22 11:43] VITALS: BP_SYST 140
--- NOTE | 2019-01-22 12:15 | NUR ---
VISIT: AT BEDSIDE TO ASSESS PT, WAS UNABLE TO COMPLETE ASSESSMENT AT THIS TIME, DUE TO PT'S REQUEST TO LEAVE AMA, WAS UNABLE TO CONVINCE PT TO STAY FOR FURTHER ASSESSMENT OF SYMPTOMS, PT CONTINUES TO BE ADAMANT ABOUT LEAVING AT THIS TIME, WILL INFORM PCP, CONT' WITH POC.
--- NOTE | 2019-01-22 12:30 | NUR ---
: SPOKE WITH , VIA TELEPHONE AND INFORMED HIM THAT PT REQUESTED TO LEAVE AMA, STATED "OKAY", NO INSTRUCTIONS GIVEN AT THIS TIME.
--- NOTE | 2019-01-22 13:00 | NUR ---
AMA: PT LEFT AMA, ACCOMPANIED BY , TRANSPORTED TO PARKING LOT TO PRIVATE CAR BY WHEELCHAIR AND STAFF.
== END 2019-01-22 12:45 | disposition left against medical advice (07) | DRG 444 ==
LOC: SED 20:18 → SMU 23:55
PROVIDERS: ADMIT Preventive Medicine Preventive Medicine/Occupational Environmental Medicine; ATTEND Preventive Medicine Preventive Medicine/Occupational Environmental Medicine
DX: K80.00 Calculus of gallbladder with acute cholecystitis without obstruction (principal); R65.11 Systemic inflammatory response syndrome (SIRS) of non-infectious origin with acute organ dysfunction; E87.2 Acidosis; E66.01 Morbid (severe) obesity due to excess calories; F12.90 Cannabis use, unspecified, uncomplicated; G89.29 Other chronic pain; I10 Essential (primary) hypertension; Z53.29 Procedure and treatment not carried out because of patient's decision for other reasons; E11.9 Type 2 diabetes mellitus without complications; Z87.442 Personal history of urinary calculi; Z68.37 Body mass index [BMI] 37.0-37.9, adult; Z88.5 Allergy status to narcotic agent; Z91.040 Latex allergy status; Z88.8 Allergy status to other drugs, medicaments and biological substances; Z79.899 Other long term (current) drug therapy; Z92.21 Personal history of antineoplastic chemotherapy; Z92.3 Personal history of irradiation; Z90.49 Acquired absence of other specified parts of digestive tract; Z79.4 Long term (current) use of insulin; E83.52 Hypercalcemia
CPT/HCPCS: 36415; 71045; 78226; 80048; 80053; 81000-TC; 82962; 83605; 83690-TC; 84484; 85025; 85610-TC; 85730-TC; 87040-TC; 87086; 93005; 96361; 96365; 96375; 99285; A9537; J0360; J1815; J1885; J2060; J2405; J3490; J7030; J7040